=== PATIENT | female | born 1970 | race Caucasian/White ===

== ENCOUNTER 2016-07-31 05:32 | Emergency (ER) | payer OTHER ==
[~2016-07-31] VITALS: Ht 154.9 cm; Wt 81.5 kg
[2016-07-31 05:36] VITALS: Ht 154.9 cm; Wt 81.5 kg
[2016-07-31] MEDS ORDERED: ONDANSETRON 4 MG INJ IV STA (06:23)
[2016-07-31] MEDS ORDERED: HYDROmorphONE 1 MG/ML SYG IV STA (06:23)
[2016-07-31 07:03] LABS: ADD SCAN DIFF NO
[2016-07-31 07:06] LABS: BASOPHILS % 0.3 % (0.0-2.0); EOSINOPHILS % 0.3 % (0.0-7.0); HEMATOCRIT 34.6 % (37.0-47.0); HEMOGLOBIN 11.5 g/dl (12.0-16.0); LYMPHOCYTES # 1.3 10^3/ul (0.8-2.9); LYMPHOCYTES % 10.7 % (15.0-51.0); MEAN CORPUSCULAR HEMOGLOBIN 29.7 pg (29.0-33.0); MEAN CORPUSCULAR HGB CONC 33.2 g/dl (32.0-37.0); MEAN CORPUSCULAR VOLUME 89.4 fl (82.0-101.0); MEAN PLATELET VOLUME 9.7 fl (7.4-10.4); MONOCYTE # 0.8 10^3/ul (0.3-0.9); MONOCYTES % 6.8 % (0.0-11.0); NEUTROPHIL # 9.7 10^3/ul (1.6-7.5); NEUTROPHILS % 81.5 % (39.0-77.0); PLATELET COUNT 202 10^3/UL (140-415); RED BLOOD COUNT 3.87 10^6/ul (4.20-5.40); RED CELL DISTRIBUTION WIDTH 12.5 % (11.5-14.5); WHITE BLOOD COUNT 11.9 10^3/ul (4.8-10.8)
[2016-07-31 07:19] LABS: ALBUMIN 3.5 g/dl (3.3-4.9); BILIRUBIN,INDIRECT 0.3 mg/dl (0-1.1); BILIRUBIN,TOTAL 0.3 mg/dl (0.2-1.3); CALCIUM 8.8 mg/dl (8.4-10.2); CREATININE 0.68 mg/dl (0.44-1.00); POTASSIUM 3.9 mmol/L (3.5-5.1)
--- NOTE | 2016-07-31 07:47 | RADRPT ---
PROCEDURE: US Abdomen. CLINICAL INDICATION: abdominal pain TECHNIQUE: Multiple real-time images were acquired of the patient's right upper quadrant abdomen a nd retroperitoneum utilizing a high resolution transducer. COMPARISON: None FINDINGS: The liver demonstrates normal echogenicity. The liver is normal in size and no focal solid lesions are seen. The liver measures 17.4 cm in length. The portal vein is patent with normal direction of f low. No intrahepatic biliary dilatation is seen. No gallstones are identified within the gallbladder. There is no pericholecystic fluid or gallbladd er wall thickening. The common bile duct measures 3 mm in maximal dimension. The visualized portions of the pancreas are unremarkable. The tail of the pancreas is not seen. No free fluid is identified. The right kidney is normal in size, and demonstrate normal echogenicity and cortical thickness. The right kidney measures 11.6 cm in long dimension. There is no evidence of hydronephrosis. There are no kidney stones. RPTAT: AA IMPRESSION: Unremarkable right upper quadrant abdominal ultrasound. .Kal Samson MD, Date Time Electronically viewed and signed by .Kal Samson MD, on 07/31/2016 07:46 .S/
[2016-07-31] MEDS ORDERED: IOHEXOL 300MG/ML 150 ML BTL ONE (10:09)
[2016-07-31] MEDS ORDERED: SOD CHLORIDE 0.9% 100 ML ONE (10:09)
--- NOTE | 2016-07-31 10:45 | RADRPT ---
PROCEDURE: CT abdomen and pelvis with contrast. CLINICAL INDICATION: Abdominal pain. Nausea and vomiting. TECHNIQUE: CT scan of the abdomen and pelvis with contrast [facility] The patient was scanned following the uncomplicated intravenous administration 100 cc of Omnipa que 300. Coronal and sagittal reformatted images were obtained from the axial source images. One or more of the following does reduction techniques were used: Automated exposure control; adjustment of the mA and/or kV according to patient size; use of the aorta of reconstruction technique. Images were reviewed on a high-resolution PACS workstation. The total exam CTDI equals 18.74 mGy and the to jay exam DLP equals 1078.39 mGy-cm. COMPARISON: None. FINDINGS: There are mild dependent changes in the posterior left lung base. Lung bases are otherwise clear.. The heart size is normal, without pericardial thickening or effusion. The liver, spleen, and pancreas are normal. The gallbladder is normal. The adrenal glands are symmetric and normal. The kidneys show normal and symmetric enhancement. No renal calculus or obstructive uropathy is seen. The aorta is of normal caliber. There is no retroperitoneal lymph node enlargment. There is no evidence of large or small bowel obstruction. A normal appendix is identified. No free f luid or fluid collections are identified. No inflammatory changes are seen. The uterus is present. There are multiple small cysts in the ovaries, a normal finding in a premeno pausal female. There is no evidence of pelvic sidewall lymph node enlargement. No pelvic free flui d is identified. The osseous structures are intact. IMPRESSION: 1. No CT evidence of acute intra-abdominal or pelvic process. 2. No CT evidence of urolithiasis. RPTAT: AA .Pedro Guerra MD, MD Date Time Electronically viewed and signed by .Pedro Guerra MD, MD on 07/31/2016 10:44 .B/
[2016-07-31 11:00] VITALS: TEMP 99.7
[2016-07-31] MEDS ORDERED: OMEP40CA6 PO (12:06)
[2016-07-31] MEDS ORDERED: DICY10CA60 PO (12:06)
--- NOTE | 2016-07-31 12:10 | ERD ---
ER Documentation Chief Complaint Date/Time DATE: 07/31/16 TIME: 12:07 Chief Complaint right flank pain x 3 hours HPI This is a 46-year-old female who says that she got food poisoning on Wednesday and has felt queasy all week. She says that she is having some right upper quadrant pain off and on for the past 4 days. Pain is crampy and does not radiate. She has occasional nausea but no vomiting no diarrhea no fever no chest pain no shortness of breath. She thinks that the pain might be worse after eating and feels that she got food poisoning and this is the residual effects. She says Wednesday she ate some chicken and she was having some vomiting and diarrhea for 24 hours ROS All systems reviewed and are negative except as per history of present illness. Medications Home Meds Active Scripts Omeprazole* (Omeprazole*) 40 Mg Capsule.dr, 40 MG PO DAILY, #14 CAP Prov:SHELDON ESPINOZA DO 07/31/16 Dicyclomine Hcl* (Bentyl*) 10 Mg Capsule, 20 MG PO QID, #30 CAP Prov:SHELDON ESPINOZA DO 07/31/16 Allergies Allergies: Coded Allergies: No Known Drug Allergies (Verified Allergy, Unknown, 07/31/16) PMhx/Soc History of Surgery: No Anesthesia Reaction: No Hx Neurological Disorder: No Hx Respiratory Disorders: No Hx Cardiac Disorders: No Hx Psychiatric Problems: No Hx Miscellaneous Medical Probl: No Hx Alcohol Use: No Hx Substance Use: No Hx Tobacco Use: No Smoking Status: Never smoker FmHx Family History: No coronary disease Physical Exam Vitals Vital Signs Date Time Temp Pulse Resp B/P Pulse Ox O2 Delivery O2 Flow Rate FiO2 07/31/16 11:00 99.7 88 20 147/75 97 Room Air 07/31/16 05:36 99.7 125 20 160/86 97 Physical Exam Const: Well-developed, well-nourished Head: Atraumatic, normocephalic Eyes: Normal Conjunctiva, PERRLA, EOMI, normal sclera, no nystagmus ENT: Normal External Ears, Nose and Mouth, moist mucus membranes. Neck: Full range of motion. No meningismus, no lymphadenopathy. Resp: Clear to auscultation bilaterally, no wheezing, rhonchi, rales Cardio: Regular rate and rhythm, no murmurs, S1 S2 present Abd: Soft, mild right upper quadrant tenderness , non distended. Normal bowel sounds, no guarding or rebound, no pulsitile abdominal masses or bruits Skin: No petechiae or rashes, no ecchymosis , no maculopapular rash Back: No midline or flank tenderness Ext: No cyanosis, or edema, FROM x 4, normal inspection, neurovascularly intact x 4 Neur: Awake and alert, STR 5/5 x 4, sensation intact x 4, no focal findings, cerebellum intact Psych: Normal Mood and Affect Result Diagram: 07/31/16 0647 07/31/16 0647 Results 24 hrs Laboratory Tests Test 07/31/16 06:47 White Blood Count 11.910^3/ul Red Blood Count 3.8710^6/ul Hemoglobin 11.5g/dl Hematocrit 34.6% Mean Corpuscular Volume 89.4fl Mean Corpuscular Hemoglobin 29.7pg Mean Corpuscular Hemoglobin Concent 33.2g/dl Red Cell Distribution Width 12.5% Platelet Count 32256^3/UL Mean Platelet Volume 9.7fl Neutrophils % 81.5% Lymphocytes % 10.7% Monocytes % 6.8% Eosinophils % 0.3% Basophils % 0.3% Nucleated Red Blood Cells % 0.0/100WBC Neutrophils # 9.710^3/ul Lymphocytes # 1.310^3/ul Monocytes # 0.810^3/ul Eosinophils # 0.010^3/ul Basophils # 0.010^3/ul Nucleated Red Blood Cells # 0.010^3/ul Sodium Level 137mmol/L Potassium Level 3.9mmol/L Chloride Level 106mmol/L Carbon Dioxide Level 25mmol/L Anion Gap 10 Blood Urea Nitrogen 4mg/dl Creatinine 0.68mg/dl Glucose Level 123mg/dl Calcium Level 8.8mg/dl Total Bilirubin 0.3mg/dl Direct Bilirubin 0.00mg/dl Indirect Bilirubin 0.3mg/dl Aspartate Amino Transf (AST/SGOT) 13IU/L Alanine Aminotransferase (ALT/SGPT) 23IU/L Alkaline Phosphatase 86IU/L Total Protein 7.0g/dl Albumin 3.5g/dl Globulin 3.50g/dl Albumin/Globulin Ratio 1.00 Lipase 26U/L Serum HCG, Qualitative NEGATIVE Current Medications Medications (Trade) Dose Ordered Sig/Ramya Route PRN Reason Start Time Stop Time Status Last Admin Dose Admin Hydromorphone HCl (Dilaudid) 1 mg ONCE STAT IV 07/31/16 06:23 07/31/16 06:25 DC 07/31/16 06:59 Ondansetron HCl (Zofran Inj) 4 mg ONCE STAT IV 07/31/16 06:23 07/31/16 06:25 DC 07/31/16 06:59 IV Flush 10 ml 10 ml STK-MED ONCE .ROUTE 07/31/16 10:09 07/31/16 10:10 DC Sodium Chloride (NS) 100 ml @ ud STK-MED ONCE .ROUTE 07/31/16 10:09 07/31/16 10:10 DC Iohexol (Omnipaque 300mg/ ml) 150 ml STK-MED ONCE .ROUTE 07/31/16 10:09 07/31/16 10:10 DC Procedures/MDM PROCEDURE: CT abdomen and pelvis with contrast. CLINICAL INDICATION: Abdominal pain. Nausea and vomiting. TECHNIQUE: CT scan of the abdomen and pelvis with contrast was performed on a multi-slice CT scanner. The patient was scanned following the uncomplicated intravenous administration 100 cc of Omnipaque 300. Coronal and sagittal reformatted images were obtained from the axial source images. One or more of the following does reduction techniques were used: Automated exposure control; adjustment of the mA and/or kV according to patient size; use of the aorta of reconstruction technique. Images were reviewed on a high-resolution PACS workstation. The total exam CTDI equals 18.74 mGy and the total exam DLP equals 1078.39 mGy-cm. COMPARISON: None. FINDINGS: There are mild dependent changes in the posterior left lung base. Lung bases are otherwise clear.. The heart size is normal, without pericardial thickening or effusion. The liver, spleen, and pancreas are normal. The gallbladder is normal. The adrenal glands are symmetric and normal. The kidneys show normal and symmetric enhancement. No renal calculus or obstructive uropathy is seen. The aorta is of normal caliber. There is no retroperitoneal lymph node enlargment. There is no evidence of large or small bowel obstruction. A normal appendix is identified. No free fluid or fluid collections are identified. No inflammatory changes are seen. The uterus is present. There are multiple small cysts in the ovaries, a normal finding in a premenopausal female. There is no evidence of pelvic sidewall lymph node enlargement. No pelvic free fluid is identified. The osseous structures are intact. IMPRESSION: 1. No CT evidence of acute intra-abdominal or pelvic process. 2. No CT evidence of urolithiasis. RPTAT: AA .Pedro Guerra MD, MD Date Time Electronically viewed and signed by .Pedro Guerra MD, MD on 2016 10:44 .B/ CC: SHELDON ESPINOZA DO PROCEDURE: US Abdomen. CLINICAL INDICATION: abdominal pain TECHNIQUE: Multiple real-time images were acquired of the patient's right upper quadrant abdomen and retroperitoneum utilizing a high resolution transducer. COMPARISON: None FINDINGS: The liver demonstrates normal echogenicity. The liver is normal in size and no focal solid lesions are seen. The liver measures 17.4 cm in length. The portal vein is patent with normal direction of flow. No intrahepatic biliary dilatation is seen. No gallstones are identified within the gallbladder. There is no pericholecystic fluid or gallbladder wall thickening. The common bile duct measures 3 mm in maximal dimension. The visualized portions of the pancreas are unremarkable. The tail of the pancreas is not seen. No free fluid is identified. The right kidney is normal in size, and demonstrate normal echogenicity and cortical thickness. The right kidney measures 11.6 cm in long dimension. There is no evidence of hydronephrosis. There are no kidney stones. RPTAT: AA IMPRESSION: Unremarkable right upper quadrant abdominal ultrasound. .Kal Samson MD, Date Time Electronically viewed and signed by .Kal Samson MD, MD on 07/31/2016 07: 46 .S/ CC: SHELDON ESPINOZA DO Patient has normal labs and CT scan and ultrasound. She may have some residual GI upset or she is having some gallbladder dysfunction. Told her that she might need to follow up with a HIDA scan and to watch for worsening after eating fatty food. Will discharge with omeprazole and Bentyl Departure Diagnosis: Primary Impression: Right upper quadrant abdominal pain Condition: Stable Patient Instructions: Abdominal Pain SHELDON ESPINOZA DO Jul 31, 2016 12:10
[2016-07-31 12:46] VITALS: BP 130/68; PULSE 70; RESP 18
== END 2016-07-31 12:46 | disposition home or self-care (01) ==
LOC: E/R 05:32
DX: R10.11 Right upper quadrant pain (principal)
CPT/HCPCS: 74177; 76705; 80053; 83690; 84703; 85025; J1170; J2405; Q9967; Z7610; 36415; 96374; 96375